=== PATIENT | female | born 1980 ===

== ENCOUNTER 2017-10-04 08:30 | Emergency (ER) | payer OTHER ==
[~2017-10-04] VITALS: Ht 170.2 cm; Wt 75.7 kg
== END 2017-10-04 15:16 | disposition home or self-care (01) ==
LOC: ER 08:30
DX: K42.9 Umbilical hernia without obstruction or gangrene (principal); R10.84 Generalized abdominal pain

== ENCOUNTER 2017-12-09 07:30 | Day surgery (SDC) | payer OTHER | END 2017-12-09 10:45 | disposition home or self-care (01) | LOC: AMB-ENDOS 07:30 | DX: D12.4 Benign neoplasm of descending colon (principal); K64.0 First degree hemorrhoids ==